=== PATIENT | male | born 1980 | race African-American/Black ===

== ENCOUNTER 2020-10-28 12:38 | Emergency (ER) | payer OTHER ==
[2020-10-28] MEDS ORDERED: Dexamethasone 10 MG/ML VIAL ONE ×2 (12:58→14:51)
--- NOTE | 2020-10-28 13:55 | RAD ---
XR Chest 1 View Portable HISTORY: Cough, shortness of breath and chest pain COMPARISON: None FINDINGS: The heart size is normal. The lungs are well expanded without pneumothorax or pleural effus ions. Mild patchy opacities are seen in the lung to bilaterally. IMPRESSION: Findings are suspicious for pneumonia.
[2020-10-28] MEDS ORDERED: Albuterol 200 PUFF (6.7GM INHALER) ONE (14:25)
[2020-10-29 02:35] LABS: SARS-CoV-2 MS2 Positive; SARS-CoV-2 N Gene Positive; SARS-CoV-2 S Gene Positive; SARS-CoV-2 by NAA DETECTED (NotDetected); SARS-CoV-2 orf1ab Positive
== END 2020-10-28 15:00 ==
LOC: ERS 12:38
DX: U07.1 COVID-19 (principal); J12.89 Other viral pneumonia; J45.909 Unspecified asthma, uncomplicated; I10 Essential (primary) hypertension; F17.210 Nicotine dependence, cigarettes, uncomplicated; Z79.899 Other long term (current) drug therapy
CPT/HCPCS: 36415; 71045; 84484; 87635; 93005; 94664; J1100; U0003